=== PATIENT | female | born 1970 | race Caucasian/White ===

== ENCOUNTER 2023-06-03 11:32 | Outpatient (CLI) | payer OTHER | END 2023-06-03 11:33 | disposition home or self-care (01) | LOC: CSHULT 11:32 | PROVIDERS: ATTEND Internal Medicine Nephrology | DX: N18.2 Chronic kidney disease, stage 2 (mild) (principal); Q63.1 Lobulated, fused and horseshoe kidney | CPT/HCPCS: 76770 ==